=== PATIENT | male | born 1960 | race Caucasian/White ===

== ENCOUNTER → 2018-05-24 | Outpatient (CLI) | payer OTHER, BC ==
[~2018-05-24] MED LIST: GENT.3OPSA OD; HYDACE5 PO; LORA10ER PO; RXLORA1 PO
[2018-05-24 14:43] LABS: Protein, Urine Random <5.0 mg/dL (0.0-11.9)
== END | disposition home or self-care (01) ==
LOC: LAB SHORT 13:54 → LAB 13:54
PROVIDERS: Internal Medicine
DX: N18.2 Chronic kidney disease, stage 2 (mild) (principal)
CPT/HCPCS: 82570; 84156

== ENCOUNTER 2020-08-19 07:02 | Day surgery (SDC) | payer OTHER, BC ==
[~2020-08-19] VITALS: Ht 182.9 cm; Wt 136.7 kg
[~2020-08-19 07:02] MED LIST changes: +DILT180; +ERGOCAL62.5 MC1; +FURO20; +LOSA50 PO; +POTA10T
--- NOTE | 2020-08-19 08:50 | NUR ---
08/19/20 0850 Kiya Martell PT UPDATED ON DELAY IN START TIME DUE TO ANESTHESIA RUNNING LATE IN THE OR. BED IN LOW, LOCKED POSITION, CALL LIGHT IN REACH.
--- NOTE | 2020-08-19 09:24 | NUR ---
08/19/20 0924 Kiya Martell PT STABLE THROUGHOUT PROCEDURE, MD BRANDON AND MYSELF FEEL HE DOES NOT NEED TO BE AN ANESTHESIA CASE NEXT TIME UNLESS SOMETHING CHANGES.
== END 2020-08-19 09:43 | disposition home or self-care (01) ==
LOC: ORSCSDS 07:02
PROVIDERS: Surgery
PROC: 0DJD8ZZ Inspection of Lower Intestinal Tract, Via Natural or Artificial Opening Endoscopic (ICD-10-PCS; principal; 2020-08-19 08:30)
DX: Z12.11 Encounter for screening for malignant neoplasm of colon (principal); I10 Essential (primary) hypertension; K57.30 Diverticulosis of large intestine without perforation or abscess without bleeding; E66.9 Obesity, unspecified; Z68.41 Body mass index [BMI] 40.0-44.9, adult; Z79.899 Other long term (current) drug therapy
CPT/HCPCS: 82947; J0461; J2405; J2704